=== PATIENT | male | born 1975 | race African-American/Black ===

== ENCOUNTER 2017-06-16 21:20 | Emergency (ER) | payer OTHER ==
[~2017-06-16] VITALS: Ht 172.7 cm; Wt 68.0 kg
[2017-06-16 21:33] VITALS: BP 144/93
== END 2017-06-17 02:00 | disposition left against medical advice (07) ==
LOC: ER 21:35
DX: F10.129 Alcohol abuse with intoxication, unspecified (principal); Z53.21 Procedure and treatment not carried out due to patient leaving prior to being seen by health care provider

== ENCOUNTER 2017-08-30 14:29 | Emergency (ER) | payer OTHER ==
[~2017-08-30] VITALS: Ht 175.3 cm; Wt 70.0 kg
[2017-08-30] MEDS ORDERED: IBUPROFEN 600MG TABLET PO ONE (15:15)
[2017-08-30] MEDS ORDERED: ACETAMINOPHEN 500MG TABLET PO ONE (15:30)
[2017-08-30 16:10] VITALS: BP 131/99
== END 2017-08-30 16:10 | disposition home or self-care (01) ==
LOC: ER 14:46
DX: F12.10 Cannabis abuse, uncomplicated (principal); F16.10 Hallucinogen abuse, uncomplicated; K08.89 Other specified disorders of teeth and supporting structures; F17.200 Nicotine dependence, unspecified, uncomplicated
CPT/HCPCS: 99283

== ENCOUNTER 2019-12-26 16:43 | Emergency (ER) | payer OTHER ==
[~2019-12-26] VITALS: Ht 177.8 cm; Wt 68.0 kg
[2019-12-26 16:45] VITALS: BP 128/83
== END 2019-12-26 17:31 | disposition left against medical advice (07) ==
LOC: ER 16:43
DX: T50.901A Poisoning by unspecified drugs, medicaments and biological substances, accidental (unintentional), initial encounter (principal); Y92.9 Unspecified place or not applicable; F32.9 Major depressive disorder, single episode, unspecified; Z88.0 Allergy status to penicillin
CPT/HCPCS: 93005; 99283

== ENCOUNTER 2024-03-31 13:51 | Emergency (ER) | payer MEDICAID, OTHER ==
[~2024-03-31] VITALS: Ht 175.3 cm; Wt 70.0 kg
[2024-03-31 13:54] VITALS: O2SAT 96
[2024-03-31 14:46] LABS: BASOPHILS % 0.9 % (0.0-2.0); EOSINOPHILS % 2.2 % (0.0-5.0); HEMATOCRIT. 38.2 % (42.0-52.0); HEMOGLOBIN. 12.7 g/dL (14.0-18.0); LYMPHOCYTES % 29.8 % (20.0-50.0); MEAN CORPUSCULAR HEMOGLOBIN 30.6 pg (28.0-32.0); MEAN CORPUSCULAR HGB CONC 33.1 g/dL (31.0-37.0); MEAN CORPUSCULAR VOLUME 92.3 fL (80.0-94.0); MEAN PLATELET VOLUME 9.3 fl (7.4-10.4); MONOCYTES % 8.7 % (2.0-8.0); NEUTROPHILS % 58.4 % (40.0-76.0); PLATELET 274 x1000/uL (130-400); RED BLOOD CELL COUNT 4.14 mill/uL (4.7-6.1); RED CELL DISTRIBUTION WIDTH 12.5 % (11.6-14.6)
[2024-03-31 14:50] LABS: CHLORIDE 105 mEq/L (98-107); POTASSIUM 3.4 mEq/L (3.5-5.1); SODIUM 139 mEq/L (136-145)
[2024-03-31 14:51] LABS: CARBON DIOXIDE 21 mEq/L (21-32)
[2024-03-31 14:56] LABS: CREATININE 0.7 mg/dL (0.6-1.3); GLUCOSE 71 mg/dL (70-105); UREA NITROGEN BLOOD 8 mg/dL (9-23)
[2024-03-31 14:57] LABS: ETHANOL BLOOD 212 mg/dL (<10)
[2024-03-31 17:44] VITALS: BP 108/47; PULSE 76; RESP 16; TEMP 36.78072; O2SAT 96
[2024-03-31] MEDS ORDERED: CLIN-116 MT (18:42)
== END 2024-03-31 18:38 | disposition home or self-care (01) ==
LOC: ER 14:29
DX: S02.85XA Fracture of orbit, unspecified, initial encounter for closed fracture (principal); F10.129 Alcohol abuse with intoxication, unspecified; F12.90 Cannabis use, unspecified, uncomplicated; F15.90 Other stimulant use, unspecified, uncomplicated; F32.A Depression, unspecified; Z98.890 Other specified postprocedural states; Z88.0 Allergy status to penicillin; Y04.0XXA Assault by unarmed brawl or fight, initial encounter; Y93.89 Activity, other specified; Y92.89 Other specified places as the place of occurrence of the external cause; Y99.8 Other external cause status; Y90.7 Blood alcohol level of 200-239 mg/100 ml
CPT/HCPCS: 36415; 80048; 80320; 85025; 99284; G0480

== ENCOUNTER 2024-04-02 20:43 | Emergency (ER) | payer OTHER ==
[~2024-04-02] VITALS: Ht 172.7 cm; Wt 75.0 kg
[~2024-04-02 20:43] MED LIST: CLIN-116 MT
[2024-04-02 20:58] VITALS: BP 139/87; PULSE 87; RESP 16; TEMP 97.4; O2SAT 98
[2024-04-02 21:42] LABS: BASOPHILS % 0.8 % (0.0-2.0); EOSINOPHILS % 2.6 % (0.0-5.0); HEMATOCRIT. 41.4 % (42.0-52.0); HEMOGLOBIN. 13.7 g/dL (14.0-18.0); LYMPHOCYTES % 25.8 % (20.0-50.0); MEAN CORPUSCULAR HGB CONC 33.2 g/dL (31.0-37.0); MEAN CORPUSCULAR VOLUME 93.4 fL (80.0-94.0); MEAN PLATELET VOLUME 9.2 fl (7.4-10.4); MONOCYTES % 7.8 % (2.0-8.0); PLATELET 277 x1000/uL (130-400); RED BLOOD CELL COUNT 4.43 mill/uL (4.7-6.1); RED CELL DISTRIBUTION WIDTH 12.6 % (11.6-14.6); WHITE BLOOD COUNT 7.4 x1000/uL (4.5-11.0)
[2024-04-02 21:48] LABS: CHLORIDE 103 mEq/L (98-107); POTASSIUM 4.2 mEq/L (3.5-5.1); SODIUM 138 mEq/L (136-145)
[2024-04-02 21:49] LABS: CARBON DIOXIDE 27 mEq/L (21-32)
[2024-04-02 21:50] LABS: CALCIUM 9.7 mg/dL (8.7-10.4)
[2024-04-02 21:54] LABS: CREATININE 0.8 mg/dL (0.6-1.3); GLUCOSE 99 mg/dL (70-105)
[2024-04-02 21:55] LABS: UREA NITROGEN BLOOD 8 mg/dL (9-23)
[2024-04-02 21:56] LABS: ACETAMINOPHEN < 2 ug/mL (10-30); CREATINE KINASE 315 IU/L (46-171)
[2024-04-02 22:02] LABS: ETHANOL BLOOD < 10 mg/dL (<10)
== END 2024-04-03 00:59 | disposition home or self-care (01) ==
LOC: ER 20:43
DX: R41.82 Altered mental status, unspecified (principal); F19.11 Other psychoactive substance abuse, in remission; F12.90 Cannabis use, unspecified, uncomplicated; Z88.0 Allergy status to penicillin
CPT/HCPCS: 36415; 80048; 80307; 80320; 80329; 82550; 85025; 93005; 99284; G0480